=== PATIENT | male | born 2005 | race Caucasian/White ===

== ENCOUNTER → 2024-05-05 | Day surgery (SDC) | payer OTHER ==
[~2024-05-05] MED LIST: DexAMETHasone SOD PHOS 10MG/1ML VIAL INJ ONE; HYDROmorphone HCL 2 MG/ML VL/or syr IV PRN; HYDROmorphone HCL 2 MG/ML VL/or syr ONE; KETOROLAC TROMETH 30 MG/ML 1ML VIAL ONE; LIDOCAINE 1% INJ PF 5ML AMP ONE; LIDOCAINE HCL 2% TOP JELLY 5ML TOP ONE; MEPERIDINE HCL (50 MG/ML) 1 ML VIAL ONE; METOCLOPRAMIDE HCL 5MG/ml INJ 2ml VIAL ONE; MIDAZOLAM HCL 2MG/2ML 2ml VIAL (1mg/ml) ONE; MORPHINE SULFATE 4 MG/ML SYR/VIAL IV PRN; MORPHINE SULFATE INJ 2 MG/ml SYRG IV PRN; ONDANSETRON HCL 4 MG/2 ML VIAL ONE; ROCURONIUM 10MG/ML 10ML VIAL IV ONE; SODIUM CHLORIDE LOCK 10 ML ONE; fentaNYL CITRATE 100 MCG/2 ML VL ONE
--- NOTE | 2024-05-05 13:07 | ED.PDOC ---
Altered Mental Status Chief Complaint: Testicular torsion Comments 19-year-old male transferred from [facility] with testicular torsion. I was advised prior to the patient's arrival that the patient was being transferred here. [employer] former supervisor was in contact with Dr. Walton (Urology) who accepted the patient. The patient arrived in the ED and Dr. Walton took the patient directly to the OR prior to my opportunity to evaluate the patient. HPI Comments 19-year-old male transferred from [facility] with testicular torsion. The patient was taken directly to the OR by Urology prior to and evaluation in the ED. Physical Exam Exam Comments Patient was taken to the OR prior to my exam Attestation Rapid evaluation performed. Patient taken to OR before full evaluation completed. TRES EGAN MD May 05, 2024 13:07
[2024-05-05 13:24] LABS: Basophils # (auto) 0 10 ^3/uL (0-0.2); Basophils % (auto) 0.3 % (0.0-2.0); Eosinophils # (auto) 0 10 ^3/uL (0-0.8); Eosinophils % (auto) 0.1 % (0.0-7.0); Hematocrit 44.6 % (41.0-53.0); Hemoglobin 15.4 g/dL (13.5-17.5); Lymphocytes # (auto) 1.4 10 ^3/uL (0.4-5.4); Mean Corpuscular Hemoglobin 31.4 pg (28.0-32.0); Mean Corpuscular Hgb Conc. 34.5 g/dL (32.0-36.0); Mean Corpuscular Volume 91.2 fL (80.0-100.0); Monocytes # (auto) 0.4 10 ^3/uL (0-1.3); Neutrophils # (auto) 7.5 10 ^3/uL (1.6-8.6); Neutrophils % (auto) 80.6 % (37.0-80.0); Platelet Count (auto) 306 10^3/uL (140-450); Red Blood Cells 4.89 10^6/uL (4.5-5.90); Red Cell Distribution Width 12.5 % (11.8-14.3); White Blood Cell 9.3 10^3/uL (4.4-10.8)
[2024-05-05] MEDS: ceFAZolin 1GM/50ML 100 ML IV ONE (13:24)
--- NOTE | 2024-05-05 13:24 | DVHINCON2 ---
Date of service: May 05, 2024 Referring Physician Emergency room at [facility], [facility] or [facility] Reason for Consultation Left testicular torsion History of Present Illness Patient was transferred from [facility] or [facility] for left testicular torsion that occurred 0600. Patient states he was awakened from sleep due to left testicular pain. 2 hours later he went to the emergency room locally where the left testicle was manually detorsed.. However he was transferred to [facility] via helicopter, nevertheless. I was not informed that the testicle was already detorsed. I informed the patient that it is no longer an emergency procedure and he can be managed as an elective management. He is agreeable and would like to proceed with bilateral orchiopexy today since he is already here. He does not want it to reoccur Past Medical History None Past Surgical History Childhood oral surgery Current Medications Current Medications Medications (Trade) Dose Ordered Sig/Kenn Route PRN Reason Start Time Stop Time Status Last Admin Hydromorphone HCl (Dilaudid Injection) 0.5 mg Q10M PRN IV SEVERE PAIN (7-10 PAIN SCALE) 05/05/24 13:15 05/05/24 13:56 UNV Morphine Sulfate 2 mg Q4H PRN IV BREAKTHRU PAIN SCALE 7-10 05/05/24 13:15 05/05/24 17:16 UNV Hydromorphone HCl (Dilaudid Injection) 0.25 mg Q10M PRN IV MODERATE PAIN (4-6 PAIN SCALE) 05/05/24 13:15 05/05/24 13:46 UNV Morphine Sulfate 1 mg Q30M PRN IV SEVERE PAIN (7-10 PAIN SCALE) 05/05/24 13:15 05/05/24 15:16 UNV Review of Systems No testicular pain at this time Vital Signs Stable Physical Exam Genitalia exam shows testicle descended bilaterally. Labs/Diagnostic Data Labs Test 05/05/24 13:05 Range/Units Assessment Left testicular torsion, manually de-torsed Plan/Recommendation Bilateral orchiopexy Discharge after surgery Plan discussed with: Patient MARIBEL DELEON MD May 05, 2024 13:24
[2024-05-05 13:58] LABS: Alanine Aminotransferase 12 U/L (7-40); Albumin 4.9 g/dL (3.2-4.8); Alkaline Phosphatase 73 U/L (46-116); Anion Gap 10 (5-15); Aspartate Aminotransferase 14 U/L (13-40); BUN/Creatinine Ratio 8.2 (10.0-20.0); Bilirubin, Total 0.7 mg/dL (0.2-1.0); Blood Urea Nitrogen 8 mg/dL (9-23); Calcium 9.9 mg/dL (8.7-10.4); Carbon Dioxide 24 mmol/L (20-31); Chloride 103 mmol/L (98-107); Glucose 127 mg/dL (74-106); Potassium 3.6 mmol/L (3.5-5.1); Sodium 137 mmol/L (136-145); Total Protein 7.4 g/dL (5.7-8.2)
[2024-05-05 14:29] VITALS: PULSE 89; RESP 18; TEMP 97.1; O2SAT 96
--- NOTE | 2024-05-05 15:23 | DVHDS2 ---
New Physician D'charge PN Admitting Diagnosis Admitting Diagnosis Left testicular torsion Discharge Diagnosis Same Operations or Procedures Bilateral orchiopexies Reason(s) For Hospitalization Surgery Treatment Plan Discharge Condition of Discharge Good Disposition Home Discharge Instructions Diet: Regular Activity: Light activity Activity comment: No physical activity x2 weeks Medications: Given Follow Up Care Follow Up/Referral: Follow up in two weeks for wound check Discharge Statement: "Patient was advised to return to the ER or call 911 if any headaches, dizziness, shortness of breath, chest pain, abdominal pain, bleeding, fevers, or worsening of medical condition. Patient was counseled about treatment plan, medications, possible side effects, patientverbalized understanding. All questions were answered to the best of my ability. This discharge took greater then 30 minutes in planning, reviewing document ation, counseling the patient, and discussing with other team members." MARIBEL DELEON MD May 05, 2024 15:23
--- NOTE | 2024-05-05 15:24 | POSTOP ---
Post-Operative Note Post-Operative Note Preop Diagnosis Left testicular torsion Postop Diagnosis: Same Operation performed Bilateral orchiopexies Anesthesia: General Anesthesiologist: Andi Deleon Date 05/05/24 Time 15:24 MARIBEL DELEON MD May 05, 2024 15:24
[2024-05-05] MEDS: HYDROmorphone HCL 2 MG/ML VL/or syr IV PRN (15:32)
[2024-05-05] MEDS: KETOROLAC TROMETH 30 MG/ML 1ML VIAL IV ONE (15:59)
[2024-05-05] MEDS: METOCLOPRAMIDE HCL 5MG/ml INJ 2ml VIAL IV ONE (16:40)
[2024-05-05 16:45] VITALS: BP 124/76; PULSE 93; RESP 13; O2SAT 100
== END | disposition home or self-care (01) ==
LOC: ER 12:54 → SUR 13:24
PROVIDERS: ATTEND Urology
DX: N44.03 Torsion of appendix testis (principal)
CPT/HCPCS: 36415; 54640; 80053; 85025; 88305; J0690; J1100; J1171; J1885; J2175; J2250; J2405; J2765; J3010